=== PATIENT | male | born 1980 | race Caucasian/White ===

== ENCOUNTER 2016-08-24 14:40 | Emergency (ER) | payer BC ==
[2016-08-24 15:33] VITALS: BP 140/83
--- NOTE | 2016-08-24 22:51 | ER ---
SUBJECTIVE: The patient is a 35-year-old male who states he is normally healthy. He was working on his cows and tried to push or punch the cow out of the way and ended up missing and hitting a fence post instead and hit it with his left hand. He states he is right-handed. He has left lateral hand tenderness along the metacarpal. He states this happened this morning again when he was aiming for a cow and missed and ended up hitting a cattle gait. He did not take anything for except Tylenol, he states the pain and swelling is a little worse this afternoon and he is afraid he might have a fracture. No other pain or injury. Otherwise, he has been healthy. No recent illness. PAST MEDICAL HISTORY: Significant for GERD. CURRENT MEDICATIONS: Include Protonix 1 tablet p.o. daily. ALLERGIES: He has no allergies. SOCIAL HISTORY: He drinks alcohol socially on occasion. No tobacco or other medicines. REVIEW OF SYSTEMS: Unremarkable. He is healthy. No recent illness. No head trauma, syncope, near- syncope, chest pain, shortness of breath, nausea, vomiting, abdominal pain, back pain, lower extremity pain only the left hand pain. OBJECTIVE: Vital signs: Stable. He is afebrile. Healthy appearing. HEENT: Normocephalic and atraumatic. A and O x3. Good historian. No respiratory distress. Extremities: Focused examination of the left hand shows good pulses and capillary refill. No deformity. He has slight swelling at the dorsum of the lateral hand along the 4th and 5th metacarpal area. Notes no specific deformity or crepitans. No lacerations or abrasions. He has good range of motion. Good strength. Good capillary refill. X-ray is obtained. No fractures noted. This was discussed with the patient. ASSESSMENT: Left hand contusion/sprain. X-ray shows no fracture. PLAN: Arm rest, ice compression, and he can elevate it for throbbing if needed. Tylenol and ibuprofen for pain. Range of motion exercises and use as able. Follow up with PCP. [facility] /[id number]
== END 2016-08-24 16:37 | disposition home or self-care (01) ==
LOC: DL.ED 14:40
DX: S63.92XA Sprain of unspecified part of left wrist and hand, initial encounter (principal); K21.9 Gastro-esophageal reflux disease without esophagitis; W22.8XXA Striking against or struck by other objects, initial encounter
CPT/HCPCS: 73130-LT; 99283

== ENCOUNTER 2023-09-21 15:04 | Emergency (ER) | payer BC ==
[2023-09-21 15:38] VITALS: BP 137/85; PULSE 100
[2023-09-21] MEDS: Diphtheria,Pertussis(Acell),Tetanus Vaccine 0.5 ML Syringe IM ONE (15:49)
[2023-09-21] MEDS: Lidocaine 1% 5 ML VIAL INJECT ONE (16:07)
[2023-09-21] MEDS: Bacitracin Oint 1 GM U/D Packet TOP ONE (16:10)
== END 2023-09-21 16:14 | disposition home or self-care (01) ==
LOC: DL.ED 15:04
DX: S01.112A Laceration without foreign body of left eyelid and periocular area, initial encounter (principal); Z79.899 Other long term (current) drug therapy; Z23 Encounter for immunization; W26.8XXA Contact with other sharp object(s), not elsewhere classified, initial encounter; Y93.89 Activity, other specified
CPT/HCPCS: 12011; 90471; 90715; 99282; 99282-25; A9270-GY; J3490

== ENCOUNTER 2025-01-21 16:18 | Emergency (ER) | payer BC ==
[2025-01-21] MEDS: Bacitracin Oint 1 GM U/D Packet TOP ONE (16:41)
[2025-01-21 18:03] VITALS: BP 134/78; PULSE 72
== END 2025-01-21 16:59 | disposition home or self-care (01) ==
LOC: DL.ED 16:18
DX: S51.011A Laceration without foreign body of right elbow, initial encounter (principal); Z79.899 Other long term (current) drug therapy; W18.39XA Other fall on same level, initial encounter; Y93.89 Activity, other specified
CPT/HCPCS: 12002; 99282; A9270; J2003